=== PATIENT | female | born 1995 | race Caucasian/White ===

== ENCOUNTER 2022-04-20 09:52 | Outpatient (REF) | payer OTHER, SELFPAY ==
[2022-04-20 15:35] LABS: CT PCR NOT DETECTED (Not Detect.); NG PCR NOT DETECTED (Not Detect.)
[2022-04-21 13:01] LABS: BV Int Neg Control Negative (Negative); BV Int Pos Control Positive (Positive)
== END 2022-04-20 09:53 | disposition home or self-care (01) ==
LOC: HO.LAB 09:52
PROVIDERS: Visit Provider Advanced Practice Midwife
DX: Z01.419 Encounter for gynecological examination (general) (routine) without abnormal findings (principal)
CPT/HCPCS: 87480; 87491; 87510; 87591; 87660; 88142

== ENCOUNTER → 2022-04-29 09:59 | Outpatient (BNVA) | payer OTHER, SELFPAY | PROVIDERS: Visit Provider Advanced Practice Midwife | DX: Z30.430 Encounter for insertion of intrauterine contraceptive device (principal) | CPT/HCPCS: 58300; J7298 ==

== ENCOUNTER 2022-07-01 12:57 | Outpatient (REF) | payer OTHER, SELFPAY ==
--- NOTE | 2022-07-01 12:20 | MHC.SHP ---
Pre-Procedural Eval Section A Date of Service: 07/01/22 The patient is an INPATIENT: No The History & Physical has been completed within 30 days and I have reviewed it.: Yes Section B Chief Complaint: Presence of (intrauterine) contraceptive device Allergies: Allergies Allergy/AdvReac Type Severity Reaction Status Date / Time No Known Allergies Allergy Verified 06/17/22 09:04 Plan I have reviewed the history and physical and performed a pertinent physical examination on my patient. No changes have occurred unless specified.
[2022-07-01 13:08] VITALS: BP 156/83; PULSE 97; RESP 16; TEMP 37.3; O2SAT 99
[2022-07-01 13:09] VITALS: BMI 22.4
[2022-07-01 13:40] VITALS: BP 133/89; PULSE 85; RESP 16; O2SAT 98
--- NOTE | 2022-07-01 13:45 | W.PM.OPN ---
Operative Note Operative Note Date of Service: 07/01/22 Narrative: Preop diagnosis: [Nexplanon, end of life; migrated into left axilla] Postop diagnosis: [same] Procedure: [Excision of Nexplanon from left axilla] Surgeon: Jonathan Xavier MD Assist: [none] Anesthesia: [Lidocaine, 2% with epi] Estimated blood loss: [3cc] Specimen: [none] Intraoperative findings: [The implant had migrated approximately 2 cm proximal to its insertion scar into the axilla] Indications: [The patient is a 26-year-old woman who has a Nexplanon implant that was [facility] a [facility] several years ago. She was evaluated for removal by her electrical control assembler, however since that migrated significantly from its insertion site, she was sent to discuss removal. The inherent risks of scar, bleeding, infection and need for another procedure in the event of a complication were discussed and apparently understood. Activity restrictions postoperatively were also reviewed and apparently understood. Patient seemed understand her options and wanted to proceed.] Procedure: [The patient was identified in the minor procedure room an appropriate time-out performed confirming we were operating in the patient's left axilla to remove a migrated, end of life Nexplanon implant. Patient was positioned supine with her left arm abducted. After cleansing the area with multiple layers of isopropyl alcohol that was allowed to dry, she was draped in the usual manner with a fenestrated drape. Local was infiltrated with excellent effect and an 11 blade used to incise immediately over the implant's distal end. Scissors and mosquito forceps were used to circumferentially dissect the implant until it was removed the subcutaneous tissues. The area was inspected for hemostasis which was obtained with direct pressure. A single 4-0 polypropylene suture was used to close the skin incision, the area washed and dried and bacitracin it with a Band-Aid applied. Patient tolerated the procedure well. Instructions regarding ice pack, pain management activity reviewed and apparently understood. Patient will follow-up in 1 week for suture removal.]
== END 2022-07-01 12:58 | disposition home or self-care (01) ==
LOC: HO.MS 12:57
PROVIDERS: Visit Provider Surgery
PROC: (CPT 10120; principal; 2022-07-01 13:00)
DX: Z30.46 Encounter for surveillance of implantable subdermal contraceptive (principal)
CPT/HCPCS: 10120